=== PATIENT | female | born 1960 | race Caucasian/White ===

== ENCOUNTER 2017-05-07 07:13 | Inpatient (IN) | payer OTHER ==
[~2017-05-07] VITALS: Ht 162.6 cm; Wt 117.2 kg
[2017-05-07] MEDS ORDERED: NURSING VERBAL MED ORDER SCH (07:30)
[2017-05-07] MEDS ORDERED: PATIENT'S ALLERGY INFO NEEDS ENTERED SCH (07:45)
[2017-05-07 09:39] VITALS: BP 144/90; PULSE 70; Ht 162.6 cm; Wt 117.2 kg
[2017-05-07] MEDS ORDERED: hydrOXYzine HCL 25 MG TAB PO PRN ×2 (11:00)
[2017-05-07] MEDS ORDERED: ALUMINUM/MAGNESIUM SUSP 30 ML UDC PO PRN (11:00)
[2017-05-07] MEDS ORDERED: MAGNESIUM HYDROXIDE SUSP 30 ML UDC PO PRN (11:00)
[2017-05-07] MEDS ORDERED: ACETAMINOPHEN 325 MG TAB PO PRN (11:00)
[2017-05-07] MEDS ORDERED: SODIUM CHLORIDE 0.65% NA SOLN 45 ML (OCEAN) PRN (11:00)
[2017-05-07] MEDS ORDERED: BISMUTH SUBSALICYLATE PER ML OMNICELL CHARGE PO PRN (11:00)
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
[2017-05-07] MEDS ORDERED: LISI20TA55 PO (13:51)
[2017-05-07] MEDS ORDERED: CYM/30 PO (13:51)
[2017-05-07] MEDS ORDERED: LORA-741 PO (13:51)
[2017-05-07] MEDS ORDERED: LISINOPRIL/HCTZ 10/12.5MG TAB PO ONE (14:15)
[2017-05-07] MEDS ORDERED: DULOXETINE (CYMBALTA) 30 MG CAP PO ONE (14:15)
[2017-05-07 14:24] VITALS: BP 136/82; PULSE 76
[2017-05-08 06:42] VITALS: BP_SYST 102; BP_SYST 110; BP_DIAS 68; BP_DIAS 76; PULSE 73; PULSE 75; TEMP 36.7
[2017-05-08] MEDS: LISINOPRIL/HCTZ 10/12.5MG TAB PO SCH (08:02)
[2017-05-08] MEDS: DULOXETINE (CYMBALTA) 30 MG CAP PO SCH (08:02)
--- NOTE | 2017-05-08 11:44 | Psychiatric Progress Notes ---
Progress Note Date of Service May 08, 2017. Interval History 56-year-old woman referred to our hospital from [facility] in [place] after she presented following an intentional polydrug overdose in a suicide attempt. Chief Complaint "Alright.". Subjective Patient was seen & assessed interval progress reviewed with Treatment Team. Sahara says that she is adjusting to the unit, but is worried that her snoring is disturbing to her roommate. She has had 2 doses of Cymbalta 30 mg. and reports some mild nausea this AM when she took it on an empty stomach and plans to ask to take it after breakfast tomorrow. Her mood remains depressed with ongoing SI. She is refusing to have any contact with her boyfriend Josef or her daughter, saying that she feels embarrassed by this episode and doesn't want anyone to see a crack in her facade. She doesn't see this as self sabotaging, but a matter of "survival". She is also talking about exploring other possible job avenues, wondering if there are other, more satisfying jobs for her. She insinuates that this may also be a function of her embarassment, and ultimatley she fears that her mental illness may be grounds for her dismissal. 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 She is also planning to phone around looking for apartment options today, planning not to return to the filerer with her boyfriend. She continues to say that she is not wanting to increase meds to soon and wants to leave Cymbalta a 30 mg. "for really long while". She reports good sleep last night, feeling rested today. Review of Systems Constitutional: No fever, No chills, No sweats, No weight loss, No weakness, No fatigue, No problem reported ENT: No hearing loss, No unusual epistaxis, No nasal symptoms, No sore throat, No tinnitus, No dental problems, No trouble swallowing, No problem reported Respiratory: + problem reported (snores) Cardiovascular: No chest pain, No orthopnea, No PND, No edema, No claudication , No palpitations, No problem reported Abdomen: No pain, No nausea, No vomiting, No diarrhea, No constipation, No GI bleeding, No problem reported Musculoskeletal: No joint pain, No muscle pain, No swelling, No calf pain, No problem reported Neurologic: No memory loss, No paralysis, No weakness, No numbness/tingling, No vertigo, No balance problems, No problem reported Psychiatric: + depression symptoms (with SI) Integumentary: No rash, No itch, No new/changing skin lesions, No color change , No bleeding, No problem reported Sleep Information Total Hours of Sleep: 5.75 Meal Information Percent of Breakfast Consumed: 50 Percent of Lunch Consumed: 30 Percent of Dinner Consumed: 100 Mental Status Exam During interview pt is: alert and oriented, cooperative Appearance: appropriately dressed (in same clothes as yesterday), appropriately groomed, other (obese) Eye contact is: good Motor behavior is: steady gait & station, no abnormal motor movements Speech: normal in rate, rhythm & volume Affect: depressed, flat, anxious Mood is: depressed Thought process: goal directed, circumstantial Thought content: reality based without delusions Suicidal thought are: present, Plan: present, Intent: denied Homicidal thoughts are: denied Hallucinations: denies auditory, denies visual Cognition: memory grossly intact, attention grossly intact, language grossly intact Intelligence estimated to be: average Insight: impaired Judgement: impaired Impression Adjusting to the support and structure of the milieu. Remains depressed with SI. Seems quite avoidant, trying to hide her depression from family and thinking about getting a new job to avoid dealing with her current employer after her attempt. Encouraged not to make any changes at present, as she will need both her income and evidence of consistent employment in order to find housing. Will continue with current meds and continue the discussion about increasing cymbalta to 60 mg. daily. Plan (1) Major depressive disorder, recurrent severe without psychotic features 05/07 -Restart Cymbalta 30 mg daily considering rapid titration to 60 mg daily if patient willing -Obtain supplemental information if not from her boyfriend Josef, from her daughter if possible f -Patient may not be able to return to her current living situation - amily meeting if indicated. - Every 15 minute checks for safety - encourage participation in group and individual counseling -CCoordinate care with her current therapist - onfirm outpatient appointment with psychiatrist - assist the patient to learn and utilize healthy coping strategies 05/08 - continue current meds - Encourage patient to reach out to family and friends for support - Patient to call employer today (2) Hypertension 05/07 - continue patient's home dose of lisinopril with hydrochlorothiazide - Monitor BPs - - Assist the patient find ways to take her medications regularly (3) Chronic pain 05/07 -Encourage the patient to ambulate for exercise daily - Tylenol as needed for pain (4) Class 3 obesity due to excess calories in adult 05/07 Consult the dietitian for weight loss strategies - Dr. Guzmán has personally been involved in the review of this case and the development of these recommendations Discharge / Aftercare Planning Primary Care Physician: Name: Dr. Krystal Vora Therapist: Name: Dr. Brooklynn Kaufman Visit Code E&M Code: 75997 Inventory Assets Strengths: Intelligence, desire to do well Needs: To develop a commitment to herself and her treatment Risk Factors Assessment : Yes /single/: Yes Higher / Fall in social status: No Health problems: Yes Mental Health Diagnoses: Yes Substance use disorders: No Previous attempt: No Previous psychiatric stay: No Hopelessness: Yes Smoker: No Protective Factors Assessment : No Responsible for young children: No Employed: Yes Stable relationships: No Supportive family: No Data Vital Signs Last 24 Hrs: Date Time Temp Pulse Resp B/P (MAP) Pulse Ox O2 Delivery O2 Flow Rate FiO2 05/08/17 06:42 36.7 75 16 102/68 73 110/76 05/07/17 14:24 76 136/82 Meds Administered Last 24 Hrs: Meds Administered (Past 24Hrs) Medications (Trade) Dose Ordered Sig/Paige Route Start Time Stop Time Status Last Admin Dose Admin Duloxetine HCl (Cymbalta Cap) 30 mg QAM PO 05/08/17 09:00 06/07/17 08:59 05/08/17 08:02 30 MG Duloxetine HCl (Cymbalta Cap) 30 mg ONE ONCE PO 05/07/17 14:15 05/07/17 14:16 DC 05/07/17 14:29 30 MG HCTZ/Lisinopril (Prinzide 10-12.5MG Tab) 1 tab QAM PO 05/08/17 09:00 06/07/17 08:59 05/08/17 08:02 1 TAB HCTZ/Lisinopril (Prinzide 10-12.5MG Tab) 1 tab ONE ONCE PO 05/07/17 14:15 05/07/17 14:16 DC 05/07/17 14:29 1 TAB
[2017-05-09 06:57] VITALS: BP_SYST 112; BP_SYST 121; BP_DIAS 76; BP_DIAS 77; PULSE 66; PULSE 75; TEMP 36.8
[2017-05-09] MEDS: DULOXETINE (CYMBALTA) 30 MG CAP PO SCH (08:43)
[2017-05-09] MEDS: LISINOPRIL/HCTZ 10/12.5MG TAB PO SCH (08:43)
--- NOTE | 2017-05-09 10:42 | Discharge Instructions ---
Discharge Information Report Includes Report will include the: Discharge Instructions & Summary Admission Admission Date / Time: May 07, 2017 at 09:10 Reason for Admission: Depression,Nos Discharge Discharge Diagnosis / Problem: Depression Condition at Discharge: Fair Discharge Goals Goal(s): Improve function, Improve disease control, Learn about illness, Therapeutic intervention Activity Recommendations Activity Limitations: per Instructions/Follow-up section . Instructions / Follow-Up Instructions / Follow-Up . SPECIAL CARE INSTRUCTIONS: 1. Follow through with your scheduled aftercare appointments. If unable to keep an appointment, please call to reschedule. 2. Take your medication only as prescribed. Medication should not be changed or stopped without the approval of your doctor. In the event of worsening symptoms or concerns about side effects, contact your doctor immediately. 3. Utilize new healthy coping skills, anger management skills, and stress management skills learned during your hospitalization. Journal feelings and process them with a support person. Identify stressors or situations that may result in relapse, deterioration or inappropriate behaviors and develop a plan to deal with those issues. 4. If your coping skills are ineffective and you are in crisis, contact your outpatient providers for direction. If unable to reach your providers, please call the CAN HELP LINE AT or go to the closest Emergency Room. 5. Avoid alcohol and un-prescribed drugs. 6. You have been provided with the Mental Health Advance Directives Pamphlet for your review. AFTERCARE APPOINTMENTS: * Please call your insurance company prior to your scheduled appointment to confirm your aftercare providers are covered. Take your insurance information to your appointments. . Discharge / Aftercare Planning Primary Care Physician: Name: Dr. Krystal Vora Therapist: Name Of Therapist: Dr. Brooklynn Kaufman . Follow-Up Care Plan for Follow-Up Care: See above. Current Hospital Diet Patient's current hospital diet: Regular Diet Discharge Diet Recommended Diet: Regular Diet Procedures Procedures Performed: No Pending Studies Pending Studies at Discharge: No Medical Emergencies . Who to Call and When: Medical Emergencies: For questions or emergencies related to your hospital stay, please contact the Inpatient Behavioral Health Unit at [phone]. A programming intern is on-call 10/09 for the Behavioral Health Unit for emergencies At any time you feel your situation is an emergency, you may also call 911 immediately. . Non-Emergent Contact Non-Emergency issues call your: Primary Care Provider, Psychiatrist, Therapist Past History Medical & Surgical History: (1) Hypertension (2) Class 3 obesity due to excess calories in adult (3) Chronic pain Advance Directives Existing Advance Directive: No Do You Have an Existing Mental: No Existing Living Will: No Existing Power of Results Technician: No Advance Directives Info Given: To Pt/S.O. Advance Directives Reason: Declines as Mental Health Visit. Discharge Summary Admission HPI Per the Admitting provider: 56 yo woman from [facility], who initially presented to [facility] in [place] by EMS after taking a polydrug overdose in a suicide attempt. She reports that she has been under increasing stress lately and "become totally overwhelmed". 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 She has also been finding it difficult to concentrate at work due to her increasing depression, and is forgetting to do things like make referrals for her clients. She is also stressed by her parents who are elderly. Her father has a cholangioma and is in deterioration. Her mother is caring for him and she notes her mother to have wild mood swings and anger that make her wonder whether or not mother is experiencing the early phases of a dementing process her personal life is also in distress saying that she has been with her current boyfriend for 23 years and he has recently asked her to move out of the camper that they have been sharing. They had lived in a rental home until about 7 years ago when the house was sold and her boyfriend, who is 10 years younger than she, no longer wanted to rent. He bought the camper and she agreed to live there with him but perryer is in bad shape, holes in the floor, described as having black mold growing in it. Her boyfriend recently went away by himself for a week and she was left to manage the camper by herself. She had never dealt with the propane that serves there perryer in the past and when she ran out, had no idea how to replenish it and so for the last week has been living without heat, refrigeration or ability to cook. He returned home on Saturday, became out rage that she had not dealt with this creating situations where things were damaged. He was angry about having to fix things and again started telling her to get out, that she was "poison", that she was a bad person. This triggered her back to similar events in her childhood and she became upset. She then went to her room only to find that he had unplugged all of her lights and electronics. At that point she became overwhelmed, says that she took all of her pill bottles, a bottle of vodka that she had purchased a month ago but not used, and got in her car and left. She began taking pills 2 or 3 at a time with alcohol and says she started to relax. She then kept taking pills and vodka but asked herself where she was going with this. She had to make a decision whether she was going to end her life by this means or stop and call for help. At that point she dialed 911, they tracked her phone and picked her up and took her to [facility] in [place]. Because she works in their mental health system, she did not want to receive mental health treatment there and so was referred to our hospital. She reports that her mood has been depressed for some time. She has been seeing her PCP, Dr. Ma, who put her on Cymbalta and Ativan but she is not committed to taking medications, having some opposition to [employer]. She last took her Cymbalta on Saturday of last week. She reports that her concentration is "at an all time low" and as above, has not been able to focus on her work. She reports her appetite has been up and over the course of the last 5 or 6 years she has put on 130 pounds leading to some medical complications including the need for a left knee replacement which they will not proceed with until she has lost weight. She reports chronic anxiety and lately as her anxiety is worsening, she is experiencing joint pains in her arms associated with anxiety. She has a history of panic attacks that usually coincided with the change of seasons in the fall but denies that they have been a significant problem lately. She denies any self-injurious behaviors. She denies any auditory or visual hallucinations. She reports that her boyfriend frequently accuses her of "self sabotaging" anything good in her life, for example referring to her as an all or nothing thinker. She notes that if something is not working well she will abandon it, turn her back on it. Her self-esteem is really quite low saying that she does not feel worthy of feeling better. She has a history of anorexia and purging when she was a teenager but currently only admits to binging on food. In asking about any bipolar symptoms , she does endorse some cycling to her moods, saying that she will be very depressed, then rebounded to a point where she feels capable, as if she wants to take better care of herself, but does not sound as if she elevates to a true manic episode. She admits that she feels quite trapped in her life, having nowhere to go if she is kicked out of her boyfriends rhoda as she cannot move in with her parents nor with her daughter. She admits that the overdose of pills and alcohol was intended as a suicide attempt. Admission Exam Per the Admitting provider: Please see admission H&P. Consultations None. Hospital Course (1) Major depressive disorder, recurrent severe without psychotic features 05/07 -Restart Cymbalta 30 mg daily considering rapid titration to 60 mg daily if patient willing -Obtain supplemental information if not from her boyfriend Josef, from her daughter if possible f -Patient may not be able to return to her current living situation - Family meeting if indicated. - Every 15 minute checks for safety - encourage participation in group and individual counseling -Coordinate care with her current therapist - Confirm outpatient appointment with psychiatrist - assist the patient to learn and utilize healthy coping strategies 05/08 - continue current meds - Encourage patient to reach out to family and friends for support - Patient to call employer today 05/09 - Rec increase in duloxetine, but patient refusing. - Encouraged her to consider taking advantage of the opportunity to address her psychosocial stressors, which she cites as her primary problem, but she continues to refuse any discussion with her boyfriend or family. She simultaneously states that she cannot address her stressors here, but then expresses anger when the option of discharge is broached. - Denying suicidal thoughts and requesting discharge, has outpatient follow- up, and sister is coming to the hospital today so can transport her. (2) Personality disorder, unspecified Avoidant and borderline traits evident, which complicate care. Recommend ongoing psychotherapy, and will follow up with Dr. Brooklynn Kaufman. (3) Hypertension 05/07 - continue patient's home dose of lisinopril with hydrochlorothiazide - Monitor BPs - - Assist the patient find ways to take her medications regularly (4) Chronic pain 05/07 -Encourage the patient to ambulate for exercise daily - Tylenol as needed for pain (5) Class 3 obesity due to excess calories in adult 05/07 Consult the dietitian for weight loss strategies - Risk Factors Assessment : Yes /single/: Yes Higher / Fall in social status: No Access to guns: No Health problems: Yes Mental Health Diagnoses: Yes Substance use disorders: No Previous attempt: No Previous psychiatric stay: No Hopelessness: Yes Smoker: No Protective Factors Assessment : No Responsible for young children: No Employed: Yes Stable relationships: No Supportive family: No Good rapport with provider: No Absence of risk factors above: Yes (Risk factors were mitigated by admission to the inpatient unit, adjusting medications to target mood, is continuing medications that are dangerous in overdose and that she overdosed on prior to admission, involving her in groups and therapy, working on healthy coping skills and a discharge safety plan, and encouraging a family meeting to work on her psychosocial stressors, which she declined. Was also recommended that her antidepressant dose be increased, which she declined. Attempted to coordinate care with her outpatient therapist, but she has not returned phone calls, although she did send records. Mood has improved, she is denying suicidal thoughts, able to review her safety plan, taking medication, and performing ADLs independently. Although the patient remains at increased risk for suicide compared to the general population, her remaining risk factors are not likely to be mitigated by continued inpatient treatment, in large part due to her refusal to engage fully in treatment.) Day of Discharge Assessment Hospital course: On admission, the patient was restarted on duloxetine 30 mg daily with recommendations to titrate to at least 60 mg daily while in the hospital. Lorazepam was discontinued due to her overdose. She refused the recommendations to increase her antidepressant, stating she wanted to leave the dose at 30 mg "for a really long while." She adamantly refused to consider a family meeting with either her boyfriend Josef whom she lives with or her sister , despite the fact that her sister was coming to the hospital to assist her with retrieving her vehicle. She requested that staff show her medical records received from her outpatient providers. She was unwilling to sign releases of information for any friends or family. She was encouraged to explore alternative options for housing, as she indicated desire not to return to her boyfriend's camper and stated that he had repeatedly asked her to leave but she had ignored him. She said that there were no affordable housing options in her area, and she was unwilling to live with any relatives after discharge. Staff assisted her to use a unit computer to explore housing options in her county, and it was suggested she could contact churches in the area to see if someone could assist her. She denied active suicidal thoughts throughout her stay, although did endorse ongoing passive suicidal thoughts at times. She expressed frustration that she did not have access to her cell phone on the unit. She attended groups and participated, and completed ADLs independently. She was eating and sleeping well on the unit. Date of discharge assessment: Patient states that her mood has improved since admission, describes it as "okay ," and attributes this to being away from her stressors. She says "I do not have the weight, the burdens I experienced," which she clarifies are due to her job, housing, and relationship. When asked what she has been working on here to mitigate these things, she states she cannot address any of the symptoms from the hospital, and feels "closed in" here. She denies suicidal thoughts and says she has been working on healthy coping skills and completed her safety plan, and is able to review it, but notes that she has always had difficulty asking others for help. She states she could talk to her sister, friend, coworker, or former boss, but notes her tendency is to isolate in her room and not address her problems. She says she thinks it would be best if she were discharged at that she could address her stressors, but struggles when asked how she plans to do this. Again encouraged her to reconsider her refusal of a family meeting, and discussed what might be able to be accomplished in talking with her boyfriend about a concrete plan for removing forward, including her retrieving her belongings and finding her own place, and her sister who is a support. Patient became increasingly angry throughout the discussion, stating that people were not listening to her because we keep recommending a family meeting and she is not interested in it, ultimately stating that she did not feel this hospital could be helpful for her "if this is all you have." Again encouraged her to reconsider, reviewed the barriers she is putting in place to recovery, but she maintained that she is not interested in the treatment we are offering and would prefer to leave. Her sister is coming today and can pick her up. Reviewed the transition of care record and patient was advised to take medications as prescribed until recommended to stop by another provider. Reviewed that Lorazepam was discontinued due to her overdose. Obese white female appearing stated age. Casually dressed and adequately groomed. Calm and partially cooperative, but somewhat argumentative. Seated in NAD, with fair eye contact and no abnormal movements. Speech is normal rate , volume, and tone. Mood is "okay," and affect is stable, mildly irritable, and congruent. Thoughts are goal directed, but engages in irrational, circular reasoning with respect to her refusal of treatment recommendations. The patient denied suicidal and homicidal ideation and was able to review her safety plan. No paranoia, delusions, or hallucinations, and did not appear to be responding to internal stimuli. Cognition was grossly intact. Alert and oriented to person, place and time. Intelligence is consistent with level of education. Insight and and judgment are limited. Total Time Total Time Spent (min): Greater than 30 minutes Total Time Included: examination of the patient, discharge planning, medication reconciliation Tobacco Cessation at Discharge Smoking Status: Former Smoker FDA approved Prescription: non-smoker
[2017-05-09] MEDS ORDERED: LSN/10125 PO (12:45)
== END 2017-05-09 13:55 | disposition home or self-care (01) | DRG 885 ==
LOC: C.MHU 09:10
PROVIDERS: ADMIT Psychiatry & Neurology Psychiatry; ATTEND Psychiatry & Neurology Psychiatry
DX: F33.2 Major depressive disorder, recurrent severe without psychotic features (principal); Z68.41 Body mass index [BMI] 40.0-44.9, adult; I10 Essential (primary) hypertension; G89.29 Other chronic pain; E66.9 Obesity, unspecified; Z91.5 Personal history of self-harm; Z87.891 Personal history of nicotine dependence; Z91.410 Personal history of adult physical and sexual abuse; Z62.811 Personal history of psychological abuse in childhood; Z79.899 Other long term (current) drug therapy; Z81.8 Family history of other mental and behavioral disorders